=== PATIENT | male | born 1955 | race Caucasian/White ===

== ENCOUNTER 2024-05-03 16:40 | Emergency (ER) | payer BC, SELFPAY ==
[2024-05-03 16:42] VITALS: BP 141/98
[2024-05-03 18:55] VITALS: BP 146/89
--- NOTE | 2024-05-03 19:12 | ED.MUSCINJ ---
HPI-Injury
General
Chief Complaint: Extremity Pain (non-traumatic)
Source: patient and other
Time Seen by Provider: 05/03/24 19:07
History of Present Illness-Injury
Initial Injury comments:
68-year-old male presents complaining of right shoulder pain after fall today. He backwards landed on his arm. He is right-hand dominant. The pain is located over the lateral aspect of the shoulder. No other this time
Past History
Past History
ED Past Medical History: None
ED Past Surgical History: None
PSI?: No
Social History
Tobacco: Non-smoker
Alcohol: Occasional
Drug: None
Personal:
Living: with family
Phy Exam
Physical Exam
Physical Exam:
General: Well-appearing male no acute respiratory distress
HEENT: Normocephalic atraumatic
Musculoskeletal exam: Right shoulder tender laterally. No deformity. Decreased active and range of motion. No deformities. Cervical spine nontender.
Vascular: 2+ radial pulse right wrist
Neurologic: Sensation right arm
Injury Course
Orders/Labs/Results
Orders:
Orders
05/03/24 16:45
Shoulder, Right, Trauma [CR Shoulder, Trauma - Right] Urgent
Comment:
Reason For Exam: pain
05/03/24 19:12
Sling Right-Treatment ONCE
MDM/Problems Addressed
Differential Diagnosis Includes:
Right shoulder discomfort after fall. Consider fracture versus dislocation versus strain
Personally visualized x-rays taken of the right shoulder through triage which are negative for bony injury including fracture or dislocation. Suspect underlying sprain or strain or perhaps rotator cuff injury. Patient placed in a sling. Was
advised to take anti-inflammatories and will be referred to orthopedics for further evaluation
*Critical Care Note
Total Time (30-74mins, 75-104mins- exclusive of procedures): Not Applicable
ED Attending Note
-
Portions of this chart may have been created with voice recognition software.� Occasional wrong word or��sound alike� substitutions may have occurred due to the inherent limitations of voice recognition software.
Discharge Plan
Departure
Patient Disposition: Home (Routine Discharge)
Date of Disposition: 05/03/24
Time of Disposition: 19:14
Patient with high blood pressure during this ER visit?: No
Discharge Problem:
Muscle strain of right shoulder
Prescriptions:
No Action
No Current Medications
0
oxycodone-acetaminophen 5 MG/325 MG tablet
1 tab PO Q6HPRN PRN (Reason: pain) Qty: 12 0RF
ondansetron 4 MG tablet,disintegrating
4 mg PO TIDPRN PRN (Reason: nausea/vomiting) Qty: 12 0RF
Referrals:
Sylvester Lanier MD [Active] -
Activity Restrictions/Additional Instructions:
You may use ibuprofen or Tylenol for pain. Use sling for support. Follow-up with orthopedics for further evaluation
Interventions
Interventions:
ED-Skin Assessment Last Done: 05/03/24 19:02
ED-Peripheral Vascular Assessment Last Done: 05/03/24 19:02
ED-Musculoskeletal Assessment Last Done: 05/03/24 19:02
Discharge Date and Time
Print Language: TURKISH
== END 2024-05-03 19:24 | disposition home or self-care (01) ==
LOC: EMR 16:40
PROVIDERS: EMERGENCY PHYSICIAN Emergency Medicine; FAMILY PHYSICIAN Family Medicine
DX: S46.911A Strain of unspecified muscle, fascia and tendon at shoulder and upper arm level, right arm, initial encounter (principal); W19.XXXA Unspecified fall, initial encounter
CPT/HCPCS: 99283; 73030